=== PATIENT | female | born 1945 | race Caucasian/White ===

== ENCOUNTER 2017-04-22 05:21 | Day surgery (SDC) | payer MEDICARE ==
[~2017-04-22] VITALS: Ht 160 cm; Wt 91.0 kg
[2017-04-22] VITALS (10 sets, daily range): BP systolic 151–178; BP diastolic 62–87
[~2017-04-22 05:21] MED LIST: ASPI-1265 PO; CALC-627 PO; DICL100G15 TP; DIPH25CA83 PO; DULO60CA34 PO; FURO-150 PO; GABA-532 PO; HYDR-565 PO; ISOS20TA6 PO; LIDO700A5 TOP; LOSA25TA96 PO; MELA3TAB PO; MULT-1085 PO; NITR0.4T51 SL; NORT25CA5 PO
[2017-04-22] MEDS ORDERED: LORazepam 0.5 MG tablet PO ONE (05:45)
[2017-04-22] MEDS ORDERED: diphenhydrAMINE 25mg capsule PO ONE (05:45)
[2017-04-22] MEDS ORDERED: normal saline 1000ml 1,000 ML IV ONE (05:45)
[2017-04-22] MEDS ORDERED: iohexol 350MG/ML 100ml bottle IV ONE (06:05)
[2017-04-22] MEDS ORDERED: LIDOcaine 1%/PF (10mg/ml) 5ml vial ONE ×3 (06:05→06:10)
[2017-04-22] MEDS ORDERED: fentaNYL/PF 50MCG/1 ML 2ML syringe ONE (06:05)
[2017-04-22] MEDS ORDERED: midazolam 2 mg/2 ml injection ONE (06:05)
[2017-04-22] MEDS ORDERED: ISOS60TA4 PO (06:20)
[2017-04-22] MEDS ORDERED: DICY10CA88 PO (06:20)
[2017-04-22] MEDS ORDERED: ALTERIL PO (06:20)
[2017-04-22] MEDS ORDERED: ESZO3TAB38 PO (06:20)
[2017-04-22] MEDS ORDERED: MAGN400C PO (06:29)
[2017-04-22] MEDS ORDERED: SIMV20TA5 PO (06:29)
[2017-04-22] MEDS ORDERED: CYAN-19 PO (06:29)
[2017-04-22] MEDS ORDERED: LOSA100T28 PO (06:29)
[2017-04-22] MEDS ORDERED: SYN0.088T PO (06:29)
[2017-04-22] MEDS ORDERED: CHOL10002 PO (06:29)
[2017-04-22] MEDS ORDERED: proCHLORperazine 10 MG/2 ml inj IV PRN (07:50)
[2017-04-22] MEDS ORDERED: ondansetron/PF 4mg/2ml inj IV PRN (07:50)
[2017-04-22] MEDS ORDERED: HYDROcodone/acetaminophen 10/325mg tab PO PRN (07:50)
[2017-04-22] MEDS ORDERED: OXAZEpam 15mg capsule PO PRN (07:50)
[2017-04-22] MEDS ORDERED: HYDROcodone/acetaminophen 5mg/325mg tablet PO PRN (07:50)
== END 2017-04-22 10:50 | disposition home or self-care (01) ==
LOC: SSTAY O 05:21
PROVIDERS: ATTEND Internal Medicine Interventional Cardiology
DX: I25.10 Atherosclerotic heart disease of native coronary artery without angina pectoris (principal); G47.33 Obstructive sleep apnea (adult) (pediatric); I10 Essential (primary) hypertension; D64.89 Other specified anemias; Z85.72 Personal history of non-Hodgkin lymphomas; Z79.899 Other long term (current) drug therapy
CPT/HCPCS: 93458; A6257; C1769; J1644; J2001; J2250; J3010; J7030; Q9967; 99152; A4620

== ENCOUNTER 2017-07-28 13:56 | Outpatient (CLI) | payer MEDICARE ==
[~2017-07-28] VITALS: Ht 160 cm; Wt 198.0 kg
[~2017-07-28 13:56] MED LIST changes: +ALTERIL PO; -CALC-627 PO; +CHOL10002 PO; +CYAN-19 PO; +DICY10CA88 PO; +ESZO3TAB38 PO; -ISOS20TA6 PO; +ISOS60TA4 PO; +LOSA100T28 PO; -LOSA25TA96 PO; +MAGN400C PO; +SIMV20TA5 PO; +SYN0.088T PO
[2017-07-28 14:40] LABS: TOTAL HEMOGLOBIN 12.9 G/dl (12.0-16.0)
[2017-07-28] MEDS ORDERED: albuterol 2.5 MG/3 ML nebule NEB ONE (15:10)
== END 2017-07-28 23:59 | disposition home or self-care (01) ==
LOC: RT 13:56
PROVIDERS: ATTEND Internal Medicine
DX: R06.02 Shortness of breath (principal); R06.09 Other forms of dyspnea; F17.200 Nicotine dependence, unspecified, uncomplicated
CPT/HCPCS: 85018

== ENCOUNTER 2021-08-11 16:04 | Emergency (ER) | payer MEDICARE ==
[~2021-08-11] VITALS: Ht 157.5 cm; Wt 68.0 kg
[~2021-08-11 16:04] MED LIST changes: -CYAN-19 PO; +CYAN-51 PO; -ESZO3TAB38 PO; +ESZO3TAB66 PO; +HYDR-4353 PO; -HYDR-565 PO; -ISOS60TA4 PO; +ISOS60TA71 PO; -LOSA100T28 PO; +LOSA100T57 PO; -MELA3TAB PO; +MELA3TAB39 PO; +SIMV-42 PO; -SIMV20TA5 PO
[2021-08-11 16:40] LABS: EOSINOPHILS # (AUTO) 0.1 X10'3 (0-0.9); EOSINOPHILS % (AUTO) 1.6 % (0-6); HEMOGLOBIN 12.9 g/dl (12.0-16.0); LYMPHOCYTES # (AUTO) 0.8 X10'3 (1.1-4.8); LYMPHOCYTES % (AUTO) 18.1 % (21-51); MEAN CORPUSCULAR HEMOGLOBIN 31.9 PG (27.0-31.0); MEAN CORPUSCULAR HGB CONC 32.3 g/dL (33.0-36.5); MEAN CORPUSCULAR VOLUME 98.8 FL (78-98); MEAN PLATELET VOLUME 9.3 FL (7.4-10.4); MONOCYTES # (AUTO) 0.2 X10'3 (0-0.9); NEUTROPHILS # (AUTO) 3.4 X10'3 (1.8-7.7); NEUTROPHILS % (AUTO) 74.3 % (42-75); PLATELET COUNT 149 X10'3 (140-440); RED BLOOD COUNT 4.04 X10'6 (4.20-5.60); WHITE BLOOD COUNT 4.6 X10'3 (4.5-11.0)
[2021-08-11 16:55] LABS: ALANINE AMINOTRANSFERASE 25 U/L (12-78); ALBUMIN 3.5 G/DL (3.4-5.0); ALBUMIN/GLOBULIN RATIO 1.2 (1.1-1.5); ALKALINE PHOSPHATASE 82 IU/L (46-116); ANION GAP 12 (8-16); ASPARTATE AMINO TRANSFERASE 40 U/L (10-37); BILIRUBIN,TOTAL 0.5 MG/DL (0.1-1.0); BLOOD UREA NITROGEN 37 MG/DL (7-18); BUN/CREATININE RATIO 16.8 (6.6-38.0); CALCIUM 8.7 MG/DL (8.5-10.1); CHLORIDE 106 MMOL/L (99-107); GLUCOSE 127 MG/DL (70-104); POTASSIUM 4.3 MMOL/L (3.5-5.1); SODIUM 139 MMOL/L (135-145); TOTAL CARBON DIOXIDE 20.6 MMOL/L (24-32); TOTAL PROTEIN 6.5 G/DL (6.4-8.2); eGFR 22 ML/MIN
--- NOTE | 2021-08-12 08:34 | NUR ---
Call from [employer] account representative, states they are in [place] but do someone willing to come in this afternoon.
--- NOTE | 2021-08-12 11:45 | NUR ---
[employer] at bedside to interigate pacemaker
[2021-08-12] MEDS ORDERED: amLODIPine 5mg tablet PO ONE (13:10)
[2021-08-12] MEDS ORDERED: acetaminophen 325mg tablet PO ONE (13:10)
[2021-08-12] MEDS: apixaban 5mg tablet PO SCH ×2 (14:46→20:00)
[2021-08-12 17:56] VITALS: BP 131/83
[2021-08-12] MEDS ORDERED: apixaban 5mg tablet PO SCH (20:00)
== END 2021-08-12 21:48 | disposition home or self-care (01) ==
LOC: ER 16:04
DX: R06.09 Other forms of dyspnea (principal); Z20.822 Contact with and (suspected) exposure to COVID-19; I25.10 Atherosclerotic heart disease of native coronary artery without angina pectoris; I11.0 Hypertensive heart disease with heart failure; I50.9 Heart failure, unspecified; E11.9 Type 2 diabetes mellitus without complications; Z90.49 Acquired absence of other specified parts of digestive tract; Z90.710 Acquired absence of both cervix and uterus; Z98.84 Bariatric surgery status; Z95.0 Presence of cardiac pacemaker; Z90.89 Acquired absence of other organs; Z79.82 Long term (current) use of aspirin; Z79.899 Other long term (current) drug therapy
CPT/HCPCS: 36415; 71045; 80053; 83880; 84145; 84484; 85025; 87635; 93005; 99285; C9803